=== PATIENT | male | born 1985 | race Caucasian/White ===

== ENCOUNTER 2016-04-14 11:42 | Inpatient (IN) | payer MEDICAID, OTHER ==
--- NOTE | 2016-04-14 11:58 | ED ---
General Adult HPI - General Chief complaint: Psychiatric Symptoms Stated complaint: Mental health, suicidal Time Seen by Provider: 04/14/16 11:51 Source: patient, RN notes reviewed, old records reviewed Mode of arrival: ambulatory Limitations: no limitations - History of Present Illness Initial comments: This is a 30-year-old male ER for evaluation. The patient is here for evaluation of [place]. Patient states he has a he was to kill himself. Patient states he had a gun he would shoot himself in the head. Denies drugs or alcohol - Related Data Home Medications Medication Instructions Recorded Confirmed Multivitamin with Iron 1 tab PO DAILY 04/14/16 04/14/16 [Multivitamins with Iron] Allergies Allergy/AdvReac Type Severity Reaction Status Date / Time No Known Allergies Allergy Verified 04/14/16 13:00 Review of Systems ROS Statement: Those systems with pertinent positive or pertinent negative responses have been documented in the HPI. ROS Other: All systems not noted in ROS Statement are negative. Past Medical History Past Medical History: No Reported History History of Any Multi-Drug Resistant Organisms: None Reported Past Surgical History: No Surgical Hx Reported Past Psychological History: Bipolar, Depression Smoking Status: Current every day smoker Past Alcohol Use History: None Reported Past Drug Use History: Marijuana, Opiates, Prescription Drug Abuse General Exam Limitations: no limitations General appearance: alert, in no apparent distress Head exam: Present: atraumatic, normocephalic, normal inspection Eye exam: Present: normal appearance, PERRL, EOMI. Absent: scleral icterus, conjunctival injection, periorbital swelling ENT exam: Present: normal exam, mucous membranes moist Neck exam: Present: normal inspection. Absent: tenderness, meningismus, lymphadenopathy Respiratory exam: Present: normal lung sounds bilaterally. Absent: respiratory distress, wheezes, rales, rhonchi, stridor Cardiovascular Exam: Present: regular rate, normal rhythm, normal heart sounds. Absent: systolic murmur, diastolic murmur, rubs, gallop, clicks GI/Abdominal exam: Present: soft, normal bowel sounds. Absent: distended, tenderness, guarding, rebound, rigid Extremities exam: Present: normal inspection, full ROM, normal capillary refill. Absent: tenderness, pedal edema, joint swelling, calf tenderness Back exam: Present: normal inspection Neurological exam: Present: alert, oriented X3, CN II-XII intact Psychiatric exam: Present: normal affect, normal mood Skin exam: Present: warm, dry, intact, normal color. Absent: rash Course Vital Signs 04/14/16 04/14/16 11:44 13:57 Temperature 97.9 F 97.3 F L Pulse Rate 89 84 Respiratory 20 18 Rate Blood Pressure 140/90 146/83 O2 Sat by Pulse 96 97 Oximetry Medical Decision Making - Medical Decision Making 30 male ER for evaluation of psychiatric suicidal thoughts. Patient will be admitted for psychiatric evaluation and treatment Disposition Clinical Impression: Suicidal ideation Disposition: TRANSFER TO PSYCH HOSP/UNIT Condition: Fair Referrals: None,Stated [Primary Care Provider] - 1-2 days
[2016-04-14] MEDS ORDERED: ACETAMINOPHEN TAB 325 MG TAB PO PRN (18:10)
[2016-04-14] MEDS ORDERED: ZIPRASIDONE 20 MG VIAL IM PRN (18:10)
[2016-04-14] MEDS ORDERED: MAG HYDROX/AL HYDROX/SIMETH 30 ML CUP PO PRN (18:10)
[2016-04-14] MEDS ORDERED: MAGNESIUM HYDROXIDE 2,400 MG/10 ML CUP PO PRN (18:10)
[2016-04-14] MEDS ORDERED: LORazepam 2 MG/ML SYRINGE IM PRN (18:16)
[2016-04-14] MEDS: NICOTINE 21MG/24HR PATCH TRANSDERM SCH (19:32)
[2016-04-14] MEDS: LORazepam 1 MG TAB PO PRN (19:34)
[2016-04-15 10:02] LABS: AST 136 U/L (17-59); Alkaline Phosphatase 56 U/L (38-126); Blood Urea Nitrogen 11 mg/dL (9-20); Calcium 8.6 mg/dL (8.4-10.2); Chloride 103 mmol/L (98-107); Glucose 127 mg/dL (74-99); Non-African American GFR(MDRD) >60 (>60 ml/min/1.73 sqM); Potassium 4.6 mmol/L (3.5-5.1); Sodium 143 mmol/L (137-145); Total Bilirubin 0.7 mg/dL (0.2-1.3); Total Protein 7.1 g/dL (6.3-8.2)
[2016-04-15 10:08] LABS: ALT 314 U/L (21-72); Anion Gap 9 mmol/L; Carbon Dioxide 31 mmol/L (22-30)
[2016-04-15 10:10] LABS: Basophils % (A) 1 %; CH 30.7; CHCM 32.2; Eosinophils # (A) 0.1 k/uL (0-0.7); Eosinophils % (A) 2 %; HCT 47.1 % (39.0-53.0); HDW 2.23; HGB 15.1 gm/dL (13.0-17.5); Luc % (Auto) 3; Lymphocytes # (A) 1.4 k/uL (1.0-4.8); Lymphocytes % (A) 34 %; MCH 30.7 pg (25.0-35.0); MCV 95.8 fL (80.0-100.0); Mean Platelet Volume 8.4; Monocytes # (A) 0.2 k/uL (0-1.0); Monocytes % (A) 4 %; Neutrophils # (A) 2.4 k/uL (1.3-7.7); Neutrophils % (A) 57 %; RBC 4.92 m/uL (4.30-5.90); RDW 14.2 % (11.5-15.5); WBC 4.2 k/uL (3.8-10.6); WBC (Perox) 4.32
[2016-04-15] MEDS: NICOTINE 21MG/24HR PATCH TRANSDERM SCH ×2 (10:36→11:03)
[2016-04-15] MEDS: LORazepam 1 MG TAB PO PRN (11:03)
[2016-04-15] MEDS ORDERED: OLANZapine 5 MG TAB PO STA (12:04)
[2016-04-15] MEDS ORDERED: buPROPion XL 300 MG TAB.ER.24H PO STA (12:05)
[2016-04-15] MEDS: MULTIVITAMINS, THERA 1 EACH TAB PO SCH (12:22)
[2016-04-15 14:10] VITALS: BMI 25.7
[2016-04-15] MEDS ORDERED: SODIUM CHLORIDE 0.65% NASAL SPRAY 44 ML BTL NASAL PRN (15:46)
--- NOTE | 2016-04-15 15:46 | P.CONS ---
History of Present Illness - Reason for Consult Consult date: 04/15/16 Medical management - History of Present Illness This is a 30-year-old male. He states he does not have a primary care physician. He does have a past medical history for hepatitis C with liver fibrosis and follows with someone in [facility], tobacco use and dependence , heroin abuse history currently on Suboxone, marijuana use, prescription drug abuse. Patient states he has been clean from heroin for 3 years. He states he started thinking alcohol since his fianc in January. He denies any history of withdrawal or seizures from alcohol. AST 136, ALT 314. TSH 0.554. Urine drug screen was positive for amphetamines, benzodiazepines, marijuana. Complaining of nasal congestion. Patient states that he was going to drink himself to and a friend brought him into [facility] emergency center for evaluation. Review of Systems All systems: negative Constitutional: Denies chills, Denies fever Eyes: denies blurred vision, denies pain Ears, nose, mouth and throat: Reports nasal congestion, Denies headache, Denies sore throat Cardiovascular: Denies chest pain, Denies shortness of breath Respiratory: Denies cough Gastrointestinal: Denies abdominal pain, Denies diarrhea, Denies nausea, Denies vomiting Musculoskeletal: Denies myalgias Integumentary: Denies pruritus, Denies rash Neurological: Denies numbness, Denies weakness Psychiatric: Reports depression, Denies anxiety Endocrine: Denies fatigue, Denies weight change Past Medical History Past Medical History: No Reported History Additional Past Medical History / Comment(s): Hepatitis C. History of Any Multi-Drug Resistant Organisms: None Reported Past Surgical History: No Surgical Hx Reported Past Anesthesia/Blood Transfusion Reactions: No Reported Reaction Past Psychological History: Bipolar, Depression Smoking Status: Current every day smoker Past Alcohol Use History: Occasional Additional Past Alcohol Use History / Comment(s): Patient is a smoker of 2-1/2 packs per day for 15 years. Pt. admits that he has been drinking more often since his fiancee in January. Last drink was 4 days ago. Past Drug Use History: Heroin, Marijuana, Opiates, Prescription Drug Abuse Additional Drug Use History / Comment(s): Pt. admits he has been smoking marijuana daily to cope with his fiancee passing away. He admits he has used IV heroin but has been clean for approx 3 years. He admits to a history of prescription drug abuse. - Past Family History Mother Family Medical History: No Reported History Additional Family Medical History / Comment(s): Mother at a young age from cocaine and alcohol abuse. Father Family Medical History: No Reported History Additional Family Medical History / Comment(s): Father is alive at age 58 with no major medical problems. Brother(s) Additional Family Medical History / Comment(s): Patient had 1 brother that at age 19 in [facility]. Sister(s) Additional Family Medical History / Comment(s): He has 4 sisters with no major medical problems. He does not have any children. Medications and Allergies Home Medications Medication Instructions Recorded Confirmed Type Multivitamin with Iron 1 tab PO DAILY 04/14/16 04/14/16 History [Multivitamins with Iron] Allergies Allergy/AdvReac Type Severity Reaction Status Date / Time No Known Allergies Allergy Verified 04/14/16 17:17 Physical Exam Vitals: Vital Signs Temp Pulse Pulse Resp BP BP Pulse Ox 04/15/16 11:04 76 18 142/83 04/15/16 06:14 97.5 F L 71 18 124/69 04/14/16 17:09 97.3 F L 74 16 133/73 100 04/14/16 16:47 98.0 F 72 18 138/83 99 Intake and Output 04/14/16 04/15/16 04/15/16 22:59 06:59 14:59 Other: Weight 88.451 kg Gen: This is a 30-year-old male. He is cooperative and appears to be in no acute distress. HEENT: Head is atraumatic, normocephalic. Pupils equal, round. Sclerae is anicteric. NECK: Supple. No JVD. No lymphadenopathy. No thyromegaly. LUNGS: Clear to auscultation. No wheezes or rhonchi. No intercostal retractions. HEART: Regular rate and rhythm. No murmur. ABDOMEN: Soft. Bowel sounds are present. No masses. No tenderness. EXTREMITIES: No pedal edema. No calf tenderness. NEUROLOGICAL: Patient is awake, alert and oriented x3. Cranial nerves 2 through 12 are grossly intact. Results CBC & Chem 7: 04/15/16 09:28 04/15/16 09:28 Labs: Abnormal Lab Results - Last 24 Hours (Table) 04/15/16 04/15/16 Range/Units 09:28 09:28 Plt Count 142 L (150-450) k/uL Carbon Dioxide 31 H (22-30) mmol/L Glucose 127 H (74-99) mg/dL AST 136 H (17-59) U/L ALT 314 H (21-72) U/L Assessment and Plan Plan: 1. Depression with suicidal ideation. Patient admitted to the mental health unit. Continue current plan of care. 2. Tobacco use and dependence. Continue Nicorette gum. 3. History of heroin abuse on Suboxone. Patient states he took his last Suboxone yesterday and his last heroin use was 3 years ago. 4. History of hepatitis C with elevated liver function test. Patient to follow up with his physician in [facility]. 5. Alcohol abuse. Continue as in #1. 6. Nasal congestion. Saline rinse. Impression and plan of care have been directed as dictated by the signing physician. Belén Edwards nurse practitioner acting as scribe for signing physician. Time with Patient: Greater than 30
[2016-04-15] MEDS: OLANZapine 5 MG TAB PO SCH ×2 (16:00→20:39)
[2016-04-15] MEDS: cloNIDine HCL 0.1 MG TAB PO SCH ×2 (18:22→20:39)
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
[2016-04-16 06:17] VITALS: RESP 18
[2016-04-16] MEDS: OLANZapine 5 MG TAB PO SCH ×3 (10:06→21:52)
[2016-04-16] MEDS: cloNIDine HCL 0.1 MG TAB PO SCH ×2 (10:06→10:12)
[2016-04-16] MEDS: buPROPion XL 300 MG TAB.ER.24H PO SCH (10:07)
[2016-04-16] MEDS: NICOTINE POLACRILEX 2 MG GUM BUCCAL PRN ×2 (12:16→14:34)
[2016-04-16] MEDS: MULTIVITAMINS, THERA 1 EACH TAB PO SCH (12:16)
[2016-04-16] MEDS ORDERED: cloNIDine HCL 0.2 MG TAB PO STA (14:16)
--- NOTE | 2016-04-16 19:43 | PN ---
DATE OF SERVICE: 04/16/2016 CHIEF COMPLAINT: Patient was having increasing problems with depression. He had feelings of hopelessness and helplessness. He started drinking. He made statements that he wanted to drink himself to . A friend brought him to the hospital for evaluation. INTERVAL HISTORY: Patient has been doing fair. He had a fairly quiet evening last night. Apparently he got upset in the evening time by some comments one staff person said to him. He said that he felt that the staff person responded to him in a rude manner. He decline taking medications. According to staff reports, he chose not to take Zyprexa yesterday evening because he understood from nurse that it may have been causing him to have restless legs. He did not take Zyprexa this morning. He reports that he slept fair. He did take his Wellbutrin. He attended some groups. He chooses not to attend the 11 a.m. group. He feels that his mood continues about the same. He does have some restlessness in his legs, though he says that otherwise he has not noted problems that he would attribute to his medications. He notes that he did not sleep well last night. We discussed medications that might help sleep. He says he would prefer not to take trazodone, as that has caused him restless legs in the past. He had been on Ambien previously. Patient did not make an effort to call [facility] yesterday, though he says he will work on that today. He has not had change in his general health. He tolerates his psychotropic medications fairly well; whether or not restless legs are related to his Zyprexa is uncertain. MENTAL STATUS: Patient was in the day area. He gave fair eye contact. Psychomotor activity was slowed. Speech was monotone. He answered questions with brief responses. He did not say a lot. His affect was blunted, his mood reserved. He seemed somewhat distressed. ASSESSMENT: I will continue the current diagnosis and treatment plan. I reviewed issues with the patient relating to possible extrapyramidal side effects with Zyprexa. We discussed that Zyprexa has the lowest incidence of EPS of all of the second-generation antipsychotics. Given that he is not sleeping well, he was accepting of trying Benadryl. I will start the patient on Benadryl 100 mg at bedtime. The patient may get some benefit from Benadryl not only for sleep but also the reduction in possible EPS symptoms that he could be getting from the Zyprexa. I encouraged him to follow through with connecting with [facility]. We talked about discharge planning. I would aim to discharge the patient by the end of the week.
[2016-04-16] MEDS ORDERED: diphenhydrAMINE 50 MG CAP PO SCH (21:00)
[2016-04-16] MEDS: cloNIDine HCL 0.2 MG TAB PO SCH (21:52)
[2016-04-17] MEDS: cloNIDine HCL 0.2 MG TAB PO SCH ×2 (06:27→21:25)
[2016-04-17] MEDS: buPROPion XL 300 MG TAB.ER.24H PO SCH (09:41)
[2016-04-17] MEDS: NICOTINE POLACRILEX 2 MG GUM BUCCAL PRN ×3 (09:41→21:25)
[2016-04-17] MEDS: OLANZapine 5 MG TAB PO SCH (09:42)
[2016-04-17] MEDS: MULTIVITAMINS, THERA 1 EACH TAB PO SCH (13:13)
--- NOTE | 2016-04-17 20:12 | PN ---
DATE OF SERVICE: 04/17/2016 CHIEF COMPLAINT: Patient was having increasing problems with depression. He had feelings of hopelessness and helplessness. He started drinking. He made statements that he wanted to drink himself to . A friend brought him to the hospital for evaluation. INTERVAL HISTORY: Patient has been doing fair. He had a quiet evening last night. Staff noted that the patient slept 6 hours last night. The patient himself reported feeling he did not sleep well at all. He was attending groups yesterday. He tended to be withdrawn, he would come to the groups and then sometimes would leave soon after. He seemed to show low energy and low motivation. Today he seems to be doing a little bit better. He was a little more connected in groups sessions. He says that he has declined taking the Zyprexa because he is quite certain it is causing him to have restless legs. He is comfortable with taking the Wellbutrin and the clonidine. When I talked to him this afternoon, he seemed to show some improvement in his mood. He was a little more emotionally responsive. He talked a little more spontaneously. We discussed options for his follow-up plans. He says that going into a three-quarter house would be the right thing for him. He says that if he returns home to live by himself it would not be good as he just has gotten into such a withdrawn state, he feels that he could do better if he was around other people who work trying to get their lives together and to move forward in their life. He feels that he needs that kind of support for his own progress. 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 He does not clearly have a alf goals. He has not had a change in his general health. He tolerates psychotropics. MENTAL STATUS: Patient was in the day area. He gave fair eye contact. Psychomotor activity was a little slowed. He answered questions with brief responses. His thoughts were clear. It was noteworthy that he showed a little more emotional responsiveness, then he did previous. He was a little more interactive. His affect was somewhat broader than it has been. His mood was down, though he seemed to show some positive mood reactivity. He did not appear to be significantly distressed. ASSESSMENT: I will continue the current diagnosis and treatment plan. I will discontinue Zyprexa. The patient will continue just on Wellbutrin XL 300 mg a day and clonidine 0.2 mg twice a day. We will continue to work with the patient on goal setting for the short-term. We will be working with him on trying to make a connection for three-quarter house placement. Presumably at [facility]. The patient feels that if that can be set up, he would be able to be discharged soon. He did not recall having made any statements about having suicide thoughts and said that if he did make that statement it was not in any kind of clear or intentional way. He does not believe that he has any thoughts or impulses towards self-harm or present.
[2016-04-18 06:46] VITALS: BP 124/64; PULSE 60; TEMP 97.9
[2016-04-18] MEDS: buPROPion XL 300 MG TAB.ER.24H PO SCH (09:30)
[2016-04-18] MEDS: NICOTINE POLACRILEX 2 MG GUM BUCCAL PRN (09:30)
[2016-04-18] MEDS: cloNIDine HCL 0.2 MG TAB PO SCH (09:30)
[2016-04-18] MEDS ORDERED: diphenhydrAMINE 25 MG CAP PO PRN (10:30)
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
== END 2016-04-18 12:16 | disposition home or self-care (01) | DRG 885 ==
LOC: EC 11:42 → 3MHU 16:35
PROVIDERS: ADMIT Psychiatry & Neurology Psychiatry; ATTEND Psychiatry & Neurology Psychiatry
DX: F33.9 Major depressive disorder, recurrent, unspecified (principal); R45.851 Suicidal ideations; F11.10 Opioid abuse, uncomplicated; B19.20 Unspecified viral hepatitis C without hepatic coma; F10.10 Alcohol abuse, uncomplicated; F12.10 Cannabis abuse, uncomplicated; F17.200 Nicotine dependence, unspecified, uncomplicated; F43.10 Post-traumatic stress disorder, unspecified; G25.81 Restless legs syndrome
CPT/HCPCS: 80053; 80306; 82075; 84443; 85025; 99285

== ENCOUNTER 2016-09-07 05:19 | Emergency (ER) | payer OTHER ==
[2016-09-07 05:26] VITALS: TEMP 97
[2016-09-07 05:57] LABS: Glucose,Whole Blood 115 mg/dL (75-99)
[2016-09-07 06:49] LABS: CH 31.7; CHCM 33.9; HCT 38.9 % (39.0-53.0); HDW 2.64; HGB 13.3 gm/dL (13.0-17.5); MCH 32.2 pg (25.0-35.0); MCHC 34.2 g/dL (31.0-37.0); MCV 94.1 fL (80.0-100.0); Mean Platelet Volume 8.3; RBC 4.13 m/uL (4.30-5.90); RDW 13.5 % (11.5-15.5); WBC 6.3 k/uL (3.8-10.6)
[2016-09-07 07:06] LABS: Acetaminophen <10.0 ug/mL; Alcohol <10 mg/dL; Anion Gap 12 mmol/L; Blood Urea Nitrogen 25 mg/dL (9-20); Calcium 9.7 mg/dL (8.4-10.2); Carbon Dioxide 30 mmol/L (22-30); Chloride 102 mmol/L (98-107); Glucose 93 mg/dL (74-99); Non-African American GFR(MDRD) >60 (>60 ml/min/1.73 sqM); Potassium 4.9 mmol/L (3.5-5.1); Salicylate <1.0 mg/dL; Sodium 144 mmol/L (137-145)
[2016-09-07] MEDS ORDERED: NALOXONE 0.4 MG/ML 1 ML VIAL IV STA ×2 (07:29→08:38)
--- NOTE | 2016-09-07 07:33 | ED ---
General Adult HPI - General Source: patient, police Mode of arrival: EMS Limitations: no limitations - History of Present Illness -: minutes(s) Improves with: none Worsens with: none Associated Symptoms: denies other symptoms <HandyfaheemYimi - Last Filed: 09/07/16 07:30> <Yris Bermudez - Last Filed: 09/07/16 11:04> - General Chief complaint: Alcohol Stated complaint: FALL/ETOH Time Seen by Provider: 09/07/16 05:57 - History of Present Illness Initial comments: This patient is a 31-year-old man brought from local restaurant where he reportedly was sleeping at a table and then fell onto the floor. Patient does appear to be intoxicated. He does rouse to tactile stimuli and denies pain. Patient also denying drug and alcohol use. (Yimi Stock) - Related Data Previous Rx's Medication Instructions Recorded buPROPion XL [Wellbutrin XL] 300 mg PO DAILY 30 Days 04/18/16 cloNIDine HCL [Catapres] 0.2 mg PO BID 30 Days 04/18/16 diphenhydrAMINE [Benadryl] 100 mg PO HS PRN 30 Days 04/18/16 Allergies Allergy/AdvReac Type Severity Reaction Status Date / Time No Known Allergies Allergy Verified 09/07/16 05:26 Review of Systems ROS Other: All systems not noted in ROS Statement are negative. Limitations: ROS unobtainable due to patients medical condition <HandyfaheemYimi - Last Filed: 09/07/16 07:30> ROS Other: All systems not noted in ROS Statement are negative. <Yris Bermudez - Last Filed: 09/07/16 11:04> ROS Statement: Those systems with pertinent positive or pertinent negative responses have been documented in the HPI. Past Medical History Past Medical History: No Reported History Additional Past Medical History / Comment(s): Hepatitis C. History of Any Multi-Drug Resistant Organisms: None Reported Past Surgical History: No Surgical Hx Reported Past Anesthesia/Blood Transfusion Reactions: No Reported Reaction Past Psychological History: Bipolar, Depression Smoking Status: Current every day smoker Past Alcohol Use History: Occasional Past Drug Use History: Heroin, Marijuana, Opiates, Prescription Drug Abuse - Past Family History Mother Family Medical History: No Reported History Additional Family Medical History / Comment(s): Mother at a young age from cocaine and alcohol abuse. Father Family Medical History: No Reported History Additional Family Medical History / Comment(s): Father is alive at age 58 with no major medical problems. Brother(s) Additional Family Medical History / Comment(s): Patient had 1 brother that at age 19 in [place]. Sister(s) Additional Family Medical History / Comment(s): He has 4 sisters with no major medical problems. He does not have any children. <MontrellYimi - Last Filed: 09/07/16 07:30> General Exam Limitations: no limitations General appearance: appears intoxicated, obtunded Head exam: Present: atraumatic, normocephalic Eye exam: Present: normal appearance. Absent: scleral icterus, conjunctival injection ENT exam: Present: mucous membranes dry Neck exam: Present: normal inspection. Absent: tenderness Respiratory exam: Present: normal lung sounds bilaterally. Absent: respiratory distress, wheezes, rales, rhonchi, stridor, chest wall tenderness Cardiovascular Exam: Present: regular rate, normal rhythm, normal heart sounds. Absent: systolic murmur, diastolic murmur, rubs, gallop GI/Abdominal exam: Present: soft. Absent: tenderness, guarding, rebound Extremities exam: Present: normal capillary refill. Absent: pedal edema, calf tenderness Back exam: Absent: tenderness, vertebral tenderness Neurological exam: Present: altered, CN II-XII intact. Absent: motor sensory deficit Skin exam: Present: warm, dry, intact, normal color. Absent: rash <MontrellYimi - Last Filed: 09/07/16 07:30> Course <MontrellYimi - Last Filed: 09/07/16 07:30> <Yris Bermudez - Last Filed: 09/07/16 11:04> Vital Signs 09/07/16 09/07/16 09/07/16 05:21 06:26 07:02 Temperature 97 F L Pulse Rate 82 75 75 Respiratory 16 14 20 Rate Blood Pressure 116/71 101/64 101/64 O2 Sat by Pulse 98 97 97 Oximetry 09/07/16 09/07/16 09/07/16 07:41 08:14 08:31 Temperature Pulse Rate 73 74 68 Respiratory 18 18 18 Rate Blood Pressure 105/66 108/73 108/73 O2 Sat by Pulse 99 100 100 Oximetry 09/07/16 09/07/16 09/07/16 09:06 09:26 10:04 Temperature Pulse Rate 76 76 77 Respiratory 18 18 18 Rate Blood Pressure 124/84 126/82 124/74 O2 Sat by Pulse 100 100 100 Oximetry Patient refused his head CT at 11 AM he wants to leave, we did see him walk, he was stable on his feet to be discharged home to follow with his family doctor ( Yris Bermudez) EKG Findings - EKG Results: EKG: interpreted by LOLI FRANCO, sinus rhythm (Rate approximately 82 bpm), normal axis, normal QRS, normal ST/T, no acute changes - IA, Pacemaker, Normal: Normal tracing: normal tracing <Yimi Stock - Last Filed: 09/07/16 07:30> Medical Decision Making - Lab Data Result diagrams: 09/07/16 05:52 09/07/16 05:52 <Yimi Stock - Last Filed: 09/07/16 07:30> - Lab Data Result diagrams: 09/07/16 05:52 09/07/16 05:52 <Yris Bermudez - Last Filed: 09/07/16 11:04> - Lab Data Lab Results 09/07/16 09/07/16 09/07/16 Range/Units 05:39 05:52 05:52 WBC 6.3 (3.8-10.6) k/uL RBC 4.13 L (4.30-5.90) m/uL Hgb 13.3 (13.0-17.5) gm/dL Hct 38.9 L (39.0-53.0) % MCV 94.1 (80.0-100.0) fL MCH 32.2 (25.0-35.0) pg MCHC 34.2 (31.0-37.0) g/dL RDW 13.5 (11.5-15.5) % Plt Count 162 (150-450) k/uL Sodium 144 (137-145) mmol/L Potassium 4.9 (3.5-5.1) mmol/L Chloride 102 (98-107) mmol/L Carbon Dioxide 30 (22-30) mmol/L Anion Gap 12 mmol/L BUN 25 H (9-20) mg/dL Creatinine 1.11 (0.66-1.25) mg/dL Est GFR (MDRD) Af Amer >60 (>60 ml/min/1.73 sqM) Est GFR (MDRD) Non-Af >60 (>60 ml/min/1.73 sqM) Glucose 93 (74-99) mg/dL POC Glucose (mg/dL) 115 H (75-99) mg/dL POC Glu Third Miller ID Sergio Lopez Calcium 9.7 (8.4-10.2) mg/dL Salicylates <1.0 mg/dL Urine Opiates Screen (NotDetected) Ur Oxycodone Screen (NotDetected) Urine Methadone Screen (NotDetected) Ur Propoxyphene Screen (NotDetected) Acetaminophen <10.0 ug/mL Ur Barbiturates Screen (NotDetected) U Tricyclic Antidepress (NotDetected) Ur Phencyclidine Scrn (NotDetected) Ur Amphetamines Screen (NotDetected) U Methamphetamines Scrn (NotDetected) U Benzodiazepines Scrn (NotDetected) Urine Cocaine Screen (NotDetected) U Marijuana (THC) Screen (NotDetected) Serum Alcohol <10 mg/dL 09/07/16 Range/Units 05:52 WBC (3.8-10.6) k/uL RBC (4.30-5.90) m/uL Hgb (13.0-17.5) gm/dL Hct (39.0-53.0) % MCV (80.0-100.0) fL MCH (25.0-35.0) pg MCHC (31.0-37.0) g/dL RDW (11.5-15.5) % Plt Count (150-450) k/uL Sodium (137-145) mmol/L Potassium (3.5-5.1) mmol/L Chloride (98-107) mmol/L Carbon Dioxide (22-30) mmol/L Anion Gap mmol/L BUN (9-20) mg/dL Creatinine (0.66-1.25) mg/dL Est GFR (MDRD) Af Amer (>60 ml/min/1.73 sqM) Est GFR (MDRD) Non-Af (>60 ml/min/1.73 sqM) Glucose (74-99) mg/dL POC Glucose (mg/dL) (75-99) mg/dL POC Glu Third Miller ID Calcium (8.4-10.2) mg/dL Salicylates mg/dL Urine Opiates Screen Detected H (NotDetected) Ur Oxycodone Screen Not Detected (NotDetected) Urine Methadone Screen Not Detected (NotDetected) Ur Propoxyphene Screen Not Detected (NotDetected) Acetaminophen ug/mL Ur Barbiturates Screen Not Detected (NotDetected) U Tricyclic Antidepress Not Detected (NotDetected) Ur Phencyclidine Scrn Not Detected (NotDetected) Ur Amphetamines Screen Detected H (NotDetected) U Methamphetamines Scrn Detected H (NotDetected) U Benzodiazepines Scrn Not Detected (NotDetected) Urine Cocaine Screen Detected H (NotDetected) U Marijuana (THC) Screen Detected H (NotDetected) Serum Alcohol mg/dL Disposition <Yimi Stock - Last Filed: 09/07/16 07:30> <Yris Bermudez - Last Filed: 09/07/16 11:04> Clinical Impression: Alcohol intoxication Disposition: HOME SELF-CARE Instructions: Alcohol Intoxication (ED) Referrals: None,Stated [Primary Care Provider] - 1-2 days
[2016-09-07 07:42] VITALS: RESP 18
[2016-09-07 10:20] VITALS: BP 124/74; PULSE 77
== END 2016-09-07 11:13 | disposition home or self-care (01) ==
LOC: EC 05:19
DX: F10.129 Alcohol abuse with intoxication, unspecified (principal); F17.200 Nicotine dependence, unspecified, uncomplicated; W08.XXXA Fall from other furniture, initial encounter; Y92.511 Restaurant or cafe as the place of occurrence of the external cause
CPT/HCPCS: 36415; 93005; 80048; 85027; 80306; 83520 ×2; 80320; 99284; 96374; J2310

== ENCOUNTER 2017-08-04 20:51 | Emergency (ER) | payer OTHER ==
--- NOTE | 2017-08-04 23:27 | ED ---
General Adult HPI - General Chief complaint: GI Bleed Stated complaint: blood in stool Time Seen by Provider: 08/04/17 23:18 Source: patient, RN notes reviewed, old records reviewed Mode of arrival: ambulatory Limitations: no limitations - History of Present Illness Initial comments: This is a 32-year-old male the ER for evaluation of possible blood in stool, patient is sent in her is coming from [place] for evaluation of blood in his stool blood on the toilet paper after wiping today. Patient's family has taken her for alcohol withdrawal. Patient denies any abdominal pain. No nausea vomiting of blood. No prior history of GI bleed - Related Data Previous Rx's Medication Instructions Recorded buPROPion XL [Wellbutrin XL] 300 mg PO DAILY 30 Days tab.er.24h 04/18/16 cloNIDine HCL [Catapres] 0.2 mg PO BID 30 Days tab 04/18/16 diphenhydrAMINE [Benadryl] 100 mg PO HS PRN 30 Days capsule 04/18/16 Allergies Allergy/AdvReac Type Severity Reaction Status Date / Time No Known Allergies Allergy Verified 08/04/17 21:20 Review of Systems ROS Statement: Those systems with pertinent positive or pertinent negative responses have been documented in the HPI. ROS Other: All systems not noted in ROS Statement are negative. Past Medical History Past Medical History: No Reported History Additional Past Medical History / Comment(s): Hepatitis C. History of Any Multi-Drug Resistant Organisms: None Reported Past Surgical History: No Surgical Hx Reported Past Anesthesia/Blood Transfusion Reactions: No Reported Reaction Past Psychological History: Bipolar, Depression Smoking Status: Current every day smoker Past Alcohol Use History: Occasional Past Drug Use History: Heroin, Marijuana, Opiates, Prescription Drug Abuse - Past Family History Mother Family Medical History: No Reported History Additional Family Medical History / Comment(s): Mother at a young age from cocaine and alcohol abuse. Father Family Medical History: No Reported History Additional Family Medical History / Comment(s): Father is alive at age 58 with no major medical problems. Brother(s) Additional Family Medical History / Comment(s): Patient had 1 brother that at age 19 in [place]. Sister(s) Additional Family Medical History / Comment(s): He has 4 sisters with no major medical problems. He does not have any children. General Exam Limitations: no limitations General appearance: alert, in no apparent distress, anxious Head exam: Present: atraumatic, normocephalic, normal inspection Eye exam: Present: normal appearance, PERRL, EOMI. Absent: scleral icterus, conjunctival injection, periorbital swelling ENT exam: Present: normal exam, mucous membranes moist Neck exam: Present: normal inspection. Absent: tenderness, meningismus, lymphadenopathy Respiratory exam: Present: normal lung sounds bilaterally. Absent: respiratory distress, wheezes, rales, rhonchi, stridor Cardiovascular Exam: Present: regular rate, normal rhythm, normal heart sounds. Absent: systolic murmur, diastolic murmur, rubs, gallop, clicks GI/Abdominal exam: Present: soft, normal bowel sounds. Absent: distended, tenderness, guarding, rebound, rigid Extremities exam: Present: normal inspection, full ROM, normal capillary refill. Absent: tenderness, pedal edema, joint swelling, calf tenderness Back exam: Present: normal inspection Neurological exam: Present: alert, oriented X3, CN II-XII intact Psychiatric exam: Present: normal affect, normal mood Skin exam: Present: warm, dry, intact, normal color. Absent: rash Course Vital Signs 08/04/17 08/04/17 21:18 23:40 Temperature 98.9 F 99.5 F Pulse Rate 106 H 87 Respiratory 16 18 Rate Blood Pressure 132/87 166/67 O2 Sat by Pulse 100 100 Oximetry - Reevaluation(s) Reevaluation #1: No bloody bowel movement here in ER, patient has normal bowel movement Medical Decision Making - Medical Decision Making 29 female the ER for evaluation of blood in stool. Patient is given medication here in the ER for current alcohol withdrawal. Patient is without current bleeding. Patient will be discharged home Disposition Clinical Impression: Gastrointestinal hemorrhage, Hemorrhoids Disposition: HOME SELF-CARE Condition: Good Instructions: Gastrointestinal Bleeding (ED) Is patient prescribed a controlled substance at d/c from ED?: No Referrals: None,Stated [REFERRING] - 1-2 days
[2017-08-04] MEDS ORDERED: DIAZEPAM 5 MG TAB PO STA (23:36)
[2017-08-04] MEDS ORDERED: LORazepam 1 MG TAB PO STA (23:36)
[2017-08-04] MEDS ORDERED: ONDANSETRON ODT 4 MG TAB PO STA (23:36)
[2017-08-04 23:51] VITALS: BP 166/67; PULSE 87; RESP 18; TEMP 99.5
== END 2017-08-04 23:46 | disposition home or self-care (01) ==
LOC: EC 20:51
DX: K64.9 Unspecified hemorrhoids (principal); F17.200 Nicotine dependence, unspecified, uncomplicated
CPT/HCPCS: 99285

== ENCOUNTER 2017-11-28 12:44 | Emergency (ER) | payer OTHER ==
[2017-11-28 12:48] VITALS: RESP 18
[2017-11-28] MEDS ORDERED: SODIUM CHLORIDE 0.9% 500 ML IV STA (13:47)
[2017-11-28] MEDS ORDERED: LORazepam 2 MG/ML INJ IV STA ×2 (13:47→14:46)
[2017-11-28 14:03] LABS: Basophils % (A) 1 %; Eosinophils # (A) 0.1 k/uL (0-0.7); Eosinophils % (A) 3 %; HCT 39.5 % (39.0-53.0); HGB 13.1 gm/dL (13.0-17.5); Lymphocytes # (A) 1.2 k/uL (1.0-4.8); Lymphocytes % (A) 37 %; MCH 30.5 pg (25.0-35.0); MCHC 33.1 g/dL (31.0-37.0); MCV 92.1 fL (80.0-100.0); Mean Platelet Volume 9.1; Monocytes # (A) 0.3 k/uL (0-1.0); Monocytes % (A) 8 %; Neutrophils # (A) 1.6 k/uL (1.3-7.7); Neutrophils % (A) 50 %; Platelet Count 109 k/uL (150-450); RBC 4.29 m/uL (4.30-5.90); RDW 13.1 % (11.5-15.5); WBC 3.2 k/uL (3.8-10.6)
[2017-11-28 14:12] LABS: ALT 122 U/L (21-72); AST 124 U/L (17-59); Albumin 4.4 g/dL (3.5-5.0); Alkaline Phosphatase 68 U/L (38-126); Anion Gap 9 mmol/L; Blood Urea Nitrogen 19 mg/dL (9-20); Calcium 9.6 mg/dL (8.4-10.2); Carbon Dioxide 28 mmol/L (22-30); Chloride 102 mmol/L (98-107); Glucose 93 mg/dL (74-99); Potassium 4.6 mmol/L (3.5-5.1); Sodium 139 mmol/L (137-145); Total Bilirubin 0.4 mg/dL (0.2-1.3)
--- NOTE | 2017-11-28 14:46 | ED ---
Seizure HPI - General Chief Complaint: Seizure Stated Complaint: Seizure Time Seen by Provider: 11/28/17 13:06 Source: patient, EMS, RN notes reviewed Mode of arrival: EMS Limitations: no limitations - History of Present Illness Initial Comments: 32-year-old male presents emergency Department from [facility] chief complaint seizure. Patient had a witnessed seizure at the facility. Patient does admit that he's had multiple seizures in the past from alcohol withdrawal. Patient states that his been at [facility] for last 4 days. He does state that his been receiving Ativan for withdrawal symptoms. Patient denies any specific complaints this time denies any headache, dizziness, neck pain, chest pain or shortness breath. - Related Data Home Medications Medication Instructions Recorded Confirmed Acetaminophen Tab [Tylenol Tab] 650 mg PO Q4H PRN 11/28/17 11/28/17 Calcium/Magnesium/Zinc 1 tab PO DAILY 11/28/17 11/28/17 [Gkghrfs-Hjzodzqnr-Vnxo Tablet] Chlorpheniramine Maleate 4 mg PO Q4H PRN 11/28/17 11/28/17 [Chlor-Trimeton] Escitalopram [Lexapro] 10 mg PO DAILY 11/28/17 11/28/17 Ibuprofen [Motrin Ib] 600 mg PO Q6H PRN 11/28/17 11/28/17 Nicotine Polacrilex [Nicotine Gum] 4 mg BUCCAL Q4H 11/28/17 11/28/17 QUEtiapine FUMARATE [SEROquel] 200 mg PO HS 11/28/17 11/28/17 buPROPion HCL [Wellbutrin XL] 300 mg PO DAILY 11/28/17 11/28/17 Allergies Allergy/AdvReac Type Severity Reaction Status Date / Time No Known Allergies Allergy Verified 11/28/17 12:59 Review of Systems ROS Statement: Those systems with pertinent positive or pertinent negative responses have been documented in the HPI. ROS Other: All systems not noted in ROS Statement are negative. Past Medical History Past Medical History: No Reported History Additional Past Medical History / Comment(s): Hepatitis C. History of Any Multi-Drug Resistant Organisms: None Reported Past Surgical History: No Surgical Hx Reported Past Anesthesia/Blood Transfusion Reactions: No Reported Reaction Past Psychological History: Bipolar, Depression Smoking Status: Current every day smoker Past Alcohol Use History: Abuse Past Drug Use History: Heroin, Marijuana, Opiates, Prescription Drug Abuse - Past Family History Mother Family Medical History: No Reported History Additional Family Medical History / Comment(s): Mother at a young age from cocaine and alcohol abuse. Father Family Medical History: No Reported History Additional Family Medical History / Comment(s): Father is alive at age 58 with no major medical problems. Brother(s) Additional Family Medical History / Comment(s): Patient had 1 brother that at age 19 in [place]. Sister(s) Additional Family Medical History / Comment(s): He has 4 sisters with no major medical problems. He does not have any children. General Exam General appearance: alert, in no apparent distress Head exam: Present: atraumatic, normocephalic, normal inspection Eye exam: Present: normal appearance, PERRL, EOMI. Absent: scleral icterus, conjunctival injection, periorbital swelling ENT exam: Present: normal exam, normal oropharynx, mucous membranes moist, TM's normal bilaterally Neck exam: Present: normal inspection, full ROM. Absent: tenderness, meningismus, lymphadenopathy Respiratory exam: Present: normal lung sounds bilaterally. Absent: respiratory distress, wheezes, rales, rhonchi, stridor Cardiovascular Exam: Present: regular rate, normal rhythm, normal heart sounds. Absent: systolic murmur, diastolic murmur, rubs, gallop, clicks Neurological exam: Present: alert, oriented X3, CN II-XII intact, reflexes normal. Absent: motor sensory deficit Course Vital Signs 11/28/17 11/28/17 12:47 13:58 Temperature 98 F Pulse Rate 71 61 Respiratory 18 18 Rate Blood Pressure 155/90 120/61 O2 Sat by Pulse 96 99 Oximetry Medical Decision Making - Lab Data Result diagrams: 11/28/17 13:53 11/28/17 13:53 Lab Results 11/28/17 11/28/17 Range/Units 13:53 13:53 WBC 3.2 L (3.8-10.6) k/uL RBC 4.29 L (4.30-5.90) m/uL Hgb 13.1 (13.0-17.5) gm/dL Hct 39.5 (39.0-53.0) % MCV 92.1 (80.0-100.0) fL MCH 30.5 (25.0-35.0) pg MCHC 33.1 (31.0-37.0) g/dL RDW 13.1 (11.5-15.5) % Plt Count 109 L (150-450) k/uL Neutrophils % 50 % Lymphocytes % 37 % Monocytes % 8 % Eosinophils % 3 % Basophils % 1 % Neutrophils # 1.6 (1.3-7.7) k/uL Lymphocytes # 1.2 (1.0-4.8) k/uL Monocytes # 0.3 (0-1.0) k/uL Eosinophils # 0.1 (0-0.7) k/uL Basophils # 0.0 (0-0.2) k/uL Sodium 139 (137-145) mmol/L Potassium 4.6 (3.5-5.1) mmol/L Chloride 102 (98-107) mmol/L Carbon Dioxide 28 (22-30) mmol/L Anion Gap 9 mmol/L BUN 19 (9-20) mg/dL Creatinine 0.61 L (0.66-1.25) mg/dL Est GFR (CKD-EPI)AfAm >90 (>60 ml/min/1.73 sqM) Est GFR (CKD-EPI)NonAf >90 (>60 ml/min/1.73 sqM) Glucose 93 (74-99) mg/dL Calcium 9.6 (8.4-10.2) mg/dL Total Bilirubin 0.4 (0.2-1.3) mg/dL AST 124 H (17-59) U/L ALT 122 H (21-72) U/L Alkaline Phosphatase 68 (38-126) U/L Total Protein 8.0 (6.3-8.2) g/dL Albumin 4.4 (3.5-5.0) g/dL - EKG Data EKG Comments: EKG performed at 13:33 sinus bradycardia with rate of 56 WA 152 QRS 102 QT/QTC 458/441 Disposition Clinical Impression: Generalized seizure, Alcohol withdrawal seizure Disposition: HOME SELF-CARE Condition: Stable Instructions: Recurrent Seizures in Adults (ED) Additional Instructions: Please return to the Emergency Department if symptoms worsen or any other concerns. Is patient prescribed a controlled substance at d/c from ED?: No Referrals: None,Stated [Primary Care Provider] - 1-2 days Time of Disposition: 14:45
[2017-11-28 15:02] VITALS: BP 117/68; PULSE 66; TEMP 97.9
== END 2017-11-28 15:01 | disposition home or self-care (01) ==
LOC: EC 12:44
DX: F10.239 Alcohol dependence with withdrawal, unspecified (principal); R56.9 Unspecified convulsions; F31.9 Bipolar disorder, unspecified; F17.200 Nicotine dependence, unspecified, uncomplicated; Z79.899 Other long term (current) drug therapy
CPT/HCPCS: 36415; 93005; 80053; 85025; 99285; 96374; 96376; J2060